=== PATIENT | female | born 1955 | race Caucasian/White ===

== ENCOUNTER 2016-10-29 06:36 | Day surgery (SDC) | payer OTHER ==
[~2016-10-29] VITALS: Ht 160 cm; Wt 46.7 kg
[2016-10-29] MEDS ORDERED: fentaNYL 0.05 MG/ML VIAL ONE (07:37)
[2016-10-29] MEDS ORDERED: LIDOCAINE 2% 100 MG/5 ML UJET TP ONE (07:37)
== END 2016-10-29 09:20 | disposition home or self-care (01) ==
LOC: MOR 06:36 → MMU 06:43 → MOR 09:20
PROVIDERS: ATTEND Internal Medicine Gastroenterology
DX: Z08 Encounter for follow-up examination after completed treatment for malignant neoplasm (principal); Z85.038 Personal history of other malignant neoplasm of large intestine; Z86.010 Personal history of colon polyps; Q43.8 Other specified congenital malformations of intestine; Z98.0 Intestinal bypass and anastomosis status
CPT/HCPCS: 45378; J3010